=== PATIENT | female | born 1975 | race African-American/Black ===

== ENCOUNTER 2022-01-20 04:08 | Inpatient (IN) | payer OTHER ==
[2022-01-20] MEDS ORDERED: PROMETHAZINE HCL 25 MG/1 ML VIAL IVPUSH PRN (08:10)
[2022-01-20] MEDS ORDERED: oxyCODONE HCL 5 MG TABLET PO PRN ×2 (08:10)
[2022-01-20] MEDS ORDERED: ONDANSETRON 4 MG/2 ML VIAL IVPUSH PRN ×2 (08:10→12:09)
[2022-01-20] MEDS ORDERED: FENTANYL CITRATE/PF 50 MCG/ML VIAL ONE ×2 (08:26→13:07)
[2022-01-20] MEDS ORDERED: MIDAZOLAM HCL 2 MG/2 ML SINGLE DOSE VIAL ONE (08:26)
[2022-01-20] MEDS ORDERED: ROCURONIUM BROMIDE 50 MG/5 ML SYRINGE ONE (08:26)
[2022-01-20] MEDS ORDERED: PROPOFOL 20 ML ONE ×2 (08:26→09:15)
[2022-01-20] MEDS ORDERED: BUPIVACAINE LIPOSOME/PF (EXPAREL) 266 MG/20 ML VIAL ONE (08:27)
[2022-01-20] MEDS ORDERED: BUPIVACAINE HCL/PF 0.5% (5MG/ML) 10 ML VIAL ONE (08:27)
[2022-01-20] MEDS ORDERED: LIDOCAINE HCL/PF 2% SDV 5ML VIAL ONE (09:14)
[2022-01-20] MEDS ORDERED: ONDANSETRON 4 MG/2 ML VIAL ONE (09:14)
[2022-01-20] MEDS ORDERED: DEXAMETHASONE SOD PHOSPHATE 4 MG/1 ML VIAL ONE ×2 (09:14→10:16)
[2022-01-20] MEDS ORDERED: CLINDAMYCIN 900 MG PREMIX BAG IVPB ONE ×2 (09:26→09:30)
[2022-01-20] MEDS ORDERED: CLINDAMYCIN 600MG PREMIX IVPB 1,200 MG/100 ML BAG IVPB ONE (09:30)
[2022-01-20] MEDS ORDERED: HYDROmorphone HCl 2 MG/ML VIAL ONE (09:38)
[2022-01-20] MEDS ORDERED: KETAMINE HCL 500 MG/10 ML VIAL ONE (09:41)
[2022-01-20] MEDS ORDERED: GLYCOPYRROLATE 0.2 MG/1 ML VIAL ONE (10:14)
[2022-01-20] MEDS ORDERED: NEOSTIGMINE METHYLSULFATE 0.5 MG/1 ML - 10 ML MDV ONE (10:14)
[2022-01-20] MEDS ORDERED: GENTAMICIN SO4 80 MG/2 ML VIAL IVPB ONE (10:43)
[2022-01-20] MEDS ORDERED: GENTAMICIN SO4 80 MG/2 ML VIAL ONE (10:53)
[2022-01-20] MEDS ORDERED: HYDROmorphone *PCA* 10MG/50ML DISP.SYRIN PCA SCH (12:30)
[2022-01-20] MEDS ORDERED: HYDROmorphone *PCA* 10MG/50ML DISP.SYRIN ONE (12:44)
[2022-01-20] MEDS: ACETAMINOPHEN 1000 MG/100 ML BAG IVPB SCH ×2 (13:12→17:31)
[2022-01-20 14:12] LABS: BASO % 0.2 % (0-2.0); HEMATOCRIT 32.8 % (32.4-45.2); HEMOGLOBIN 10.7 GM/dL (10.7-15.3); LYMPH % 10.7 % (8-40); MCH 26.8 pg (25.7-33.7); MCHC 32.6 g/dl (32.0-36.0); MEAN CELL VOLUME 82.1 fl (80-96); MEAN PLT VOLUME 9.1 fl (7.5-11.1); MONO % 2.9 % (3.8-10.2); NEUT % 86.2 % (42.8-82.8); PLATELET COUNT 289 10^3/uL (134-434); RDW 14.3 % (11.6-15.6); WHITE BLOOD COUNT 15.1 K/mm3 (4.0-10.0)
[2022-01-20 16:45] VITALS: BMI 31.8
[2022-01-20] MEDS: LACTATED RINGERS SOLUTION 1,000 ML IV SCH ×2 (17:20→17:31)
[2022-01-20] MEDS: ELECTROLYTE-148 SOLN 1,000 ML IV SCH (17:21)
[2022-01-20] MEDS: CLINDAMYCIN 900 MG PREMIX IVPB 900 MG/50 ML BAG IVPB SCH (17:29)
[2022-01-20] MEDS: GENTAMICIN 80 MG PREMIXED IVPB 80 MG/100 ML BAG IVPB SCH (18:02)
[2022-01-21] MEDS: ACETAMINOPHEN 1000 MG/100 ML BAG IVPB SCH ×2 (00:52→06:22)
[2022-01-21] MEDS: CLINDAMYCIN 900 MG PREMIX IVPB 900 MG/50 ML BAG IVPB SCH ×3 (01:25→17:04)
[2022-01-21] MEDS: GENTAMICIN 80 MG PREMIXED IVPB 80 MG/100 ML BAG IVPB SCH ×3 (02:12→17:05)
[2022-01-21] MEDS ORDERED: SIMETHICONE 80 MG TAB.CHEW (FP) PO PRN (07:53)
[2022-01-21] MEDS: oxyCODONE HCL 5 MG TABLET PO PRN ×4 (09:06→21:20)
[2022-01-21] MEDS: ENOXAPARIN NA (PORCINE) 40 MG/0.4 ML DISP.SYRIN SQ SCH (09:07)
[2022-01-21] MEDS: DOCUSATE SODIUM 100 MG CAPSULE (FP) PO SCH ×2 (09:07→21:20)
[2022-01-21] MEDS: LACTATED RINGERS SOLUTION 1,000 ML IV SCH ×2 (09:08→16:33)
[2022-01-21 11:43] LABS: BASO % 0.1 % (0-2.0); HEMATOCRIT 26.9 % (32.4-45.2); LYMPH % 22.3 % (8-40); MCH 27.3 pg (25.7-33.7); MCHC 33.3 g/dl (32.0-36.0); MEAN CELL VOLUME 82.1 fl (80-96); MEAN PLT VOLUME 9.1 fl (7.5-11.1); MONO % 11.3 % (3.8-10.2); NEUT % 66.3 % (42.8-82.8); PLATELET COUNT 253 10^3/uL (134-434); RBC 3.28 M/mm3 (3.60-5.2); RDW 14.1 % (11.6-15.6); WHITE BLOOD COUNT 8.7 K/mm3 (4.0-10.0)
[2022-01-21 12:03] LABS: CALCIUM 9.1 mg/dL (8.5-10.1)
[2022-01-21 12:04] LABS: BLOOD UREA NITROGEN 10.3 mg/dL (7-18)
[2022-01-21] MEDS: ELECTROLYTE-148 SOLN 1,000 ML IV SCH (12:04)
[2022-01-21 12:07] LABS: CREATININE 0.8 mg/dL (0.55-1.3)
[2022-01-21] MEDS ORDERED: oxyCODONE HCL 5 MG TABLET PO PRN (23:18)
[2022-01-22] MEDS: ELECTROLYTE-148 SOLN 1,000 ML IV SCH ×2 (00:57→13:40)
[2022-01-22] MEDS: GENTAMICIN 80 MG PREMIXED IVPB 80 MG/100 ML BAG IVPB SCH ×3 (01:00→18:40)
[2022-01-22] MEDS: CLINDAMYCIN 900 MG PREMIX IVPB 900 MG/50 ML BAG IVPB SCH ×3 (02:07→19:56)
[2022-01-22] MEDS: oxyCODONE HCL 5 MG TABLET PO PRN ×3 (02:34→21:24)
[2022-01-22] MEDS ORDERED: IBUPROFEN 600 MG TABLET (FP) PO PRN (08:05)
[2022-01-22] MEDS: ENOXAPARIN NA (PORCINE) 40 MG/0.4 ML DISP.SYRIN SQ SCH (09:52)
[2022-01-22] MEDS: DOCUSATE SODIUM 100 MG CAPSULE (FP) PO SCH ×2 (09:53→21:21)
[2022-01-22 11:27] LABS: BASO % 0.7 % (0-2.0); HEMATOCRIT 26.4 % (32.4-45.2); HEMOGLOBIN 8.8 GM/dL (10.7-15.3); LYMPH % 11.3 % (8-40); MCH 27.1 pg (25.7-33.7); MCHC 33.3 g/dl (32.0-36.0); MEAN CELL VOLUME 81.4 fl (80-96); MEAN PLT VOLUME 9.4 fl (7.5-11.1); MONO % 8.7 % (3.8-10.2); NEUT % 79.3 % (42.8-82.8); PLATELET COUNT 246 10^3/uL (134-434); RBC 3.24 M/mm3 (3.60-5.2); RDW 14.2 % (11.6-15.6); WHITE BLOOD COUNT 9.1 K/mm3 (4.0-10.0)
[2022-01-22 12:04] LABS: CALCIUM 8.9 mg/dL (8.5-10.1)
[2022-01-22 12:05] LABS: BLOOD UREA NITROGEN 7.6 mg/dL (7-18)
[2022-01-22 12:07] LABS: CREATININE 0.6 mg/dL (0.55-1.3)
[2022-01-22 14:42] VITALS: RESP 18
[2022-01-23] MEDS: CLINDAMYCIN 900 MG PREMIX IVPB 900 MG/50 ML BAG IVPB SCH ×2 (02:37→10:09)
[2022-01-23] MEDS: GENTAMICIN 80 MG PREMIXED IVPB 80 MG/100 ML BAG IVPB SCH ×2 (03:10→11:31)
[2022-01-23] MEDS: DOCUSATE SODIUM 100 MG CAPSULE (FP) PO SCH (10:09)
[2022-01-23] MEDS: ENOXAPARIN NA (PORCINE) 40 MG/0.4 ML DISP.SYRIN SQ SCH ×2 (10:09→10:58)
[2022-01-23 12:16] VITALS: BP 113/63; PULSE 87; TEMP 98.6
== END 2022-01-23 13:10 | disposition home or self-care (01) | DRG 519 ==
LOC: J2C 04:08 → J6S 16:21
PROVIDERS: ADMIT Obstetrics & Gynecology; ATTEND Obstetrics & Gynecology
PROC: 0DNW0ZZ Release Peritoneum, Open Approach (ICD-10-PCS; 2022-01-20)
PROC: 0UN90ZZ Release Uterus, Open Approach (ICD-10-PCS; 2022-01-20)
PROC: 0UT90ZL Resection of Uterus, Supracervical, Open Approach (ICD-10-PCS; principal; 2022-01-20 09:00)
DX: D25.9 Leiomyoma of uterus, unspecified (principal); K66.0 Peritoneal adhesions (postprocedural) (postinfection); R10.2 Pelvic and perineal pain; R31.9 Hematuria, unspecified; T81.89XA Other complications of procedures, not elsewhere classified, initial encounter; Y83.9 Surgical procedure, unspecified as the cause of abnormal reaction of the patient, or of later complication, without mention of misadventure at the time of the procedure
CPT/HCPCS: 36415; 72193-TC; 80048; 81025; 85025; 86850; 86900; 86901; 86922; 88302-TC; 88305-TC; 88307-TC; 88341-TC; 94760